=== PATIENT | female | born 1955 | race Caucasian/White ===

== ENCOUNTER 2021-12-31 07:39 | Emergency (ER) | payer MEDICARE ==
[2021-12-31 08:22] LABS: HEMOGLOBIN 14.3 gm/dl (12.3-15.3); RED BLOOD COUNT 4.84 M/UL (4.00-5.10); WHITE BLOOD COUNT 3.9 K/UL (4.5-11.0)
[2021-12-31 09:06] LABS: BUN/CREATININE RATIO 19 (0-10)
[2021-12-31] MEDS ORDERED: ZOFRAN ODT 4 MG4 MG PO (12:37)
[2021-12-31] MEDS ORDERED: ANTIVERT 12.512.5 MG PO (12:37)
== END 2021-12-31 12:47 | disposition home or self-care (01) ==
LOC: ER1 07:39
PROVIDERS: Family Medicine
DX: R42 Dizziness and giddiness (principal); R11.0 Nausea; I10 Essential (primary) hypertension; E03.9 Hypothyroidism, unspecified; Z20.822 Contact with and (suspected) exposure to COVID-19
CPT/HCPCS: 80048; 82550; 82553; 83874; 84439; 84443; 84484; 85025; 93005; 96374; 99284; J2405; U0002